=== PATIENT | female | born 1935 | race Caucasian/White ===

== ENCOUNTER 2017-04-21 09:31 | Emergency (ER) | payer MEDICARE ==
[~2017-04-21] VITALS: Ht 157.5 cm; Wt 65.0 kg
[2017-04-21 09:32] VITALS: BP 138/78; PULSE 97; RESP 20; TEMP 98.8; O2SAT 94
[2017-04-21 09:41] VITALS: O2SAT 94
[2017-04-21] MEDS ORDERED: SODIUM CHLORIDE 0.9% FLUSH 10 ML FLUSH IVF PRN (09:45)
[2017-04-21] MEDS: RESP: ALBUTEROL 2.5 MG/IPRATROPIUM 0.5 MG NEB (SCH) INH (09:49)
[2017-04-21] MEDS ORDERED: LOSA25TA PO (09:58)
[2017-04-21] MEDS ORDERED: ALBUAER3 INH (09:58)
[2017-04-21] MEDS ORDERED: NIFE10CA PO (09:58)
[2017-04-21] MEDS ORDERED: MOXI400T4 PO (09:58)
[2017-04-21] MEDS ORDERED: PRAV40TA2 PO (09:58)
[2017-04-21] MEDS ORDERED: GLYB5TAB3 PO (09:58)
[2017-04-21] MEDS ORDERED: MULT1TAB PO (09:58)
[2017-04-21] MEDS ORDERED: ASPI-110 PO (09:58)
[2017-04-21] MEDS ORDERED: BENZ100 PO (09:58)
[2017-04-21 10:11] LABS: AUTOMATED NEUTROPHIL # 5.9 TH/MM3 (1.8-7.7); BASOPHIL # 0.1 TH/MM3 (0-0.2); BASOPHIL % 0.7 % (0.0-2.0); EOSINOPHIL # 0.1 TH/MM3 (0-0.4); EOSINOPHIL % 1.1 % (0.0-4.0); HEMATOCRIT 39.4 % (35.0-46.0); MEAN CELL VOLUME 92.1 FL (80.0-100.0); MEAN CORPUSCULAR HEMOGLOBIN 30.2 PG (27.0-34.0); MEAN CORPUSCULAR HGB CONC 32.8 % (32.0-36.0); MONO % 5.4 % (0.0-8.0); NEUT % 79.8 % (16.0-70.0); PLATELET COUNT 292 TH/MM3 (150-450); RED BLOOD COUNT 4.28 MIL/MM3 (4.00-5.30); RED CELL DISTRIBUTION WIDTH 12.8 % (11.6-17.2); WHITE BLOOD COUNT 7.5 TH/MM3 (4.0-11.0)
[2017-04-21 10:24] LABS: POTASSIUM 4.2 MEQ/L (3.5-5.1)
[2017-04-21 10:25] LABS: HEMO FLAGS DIFF FINAL
--- NOTE | 2017-04-21 10:43 | RADHPO ---
EXAM DATE/TIME: 04/21/2017 10:22 [facility] COMPARISON: No previous studies available for comparison. INDICATIONS : Short of Breath MEDICAL HISTORY : None. SURGICAL HISTORY : None. ENCOUNTER: Initial ACUITY: 1 day PAIN SCORE: 0/10 LOCATION: Bilateral chest FINDINGS: There is cardiomegaly with mild interstitial edema. The cardiomegaly is mild as well. There is elevation of the right hemidiaphragm with multiple changes in the right base that has the ap pearance of likely fluid. There is no pneumothorax. The portion of the bony skeleton visualized is u nremarkable. CONCLUSION: Abnormal right base. Mild congestive failure probable small loculated right pleural effusion. Pratik Mcclendon MD FACR on April 21, 2017 at 10:39 Board Certified Radiologist. This report was verified electronically.
--- NOTE | 2017-04-21 11:05 | PD ---
HPI Chief Complaint: Respiratory Symptoms Time Seen by Provider: 09:38 Travel History International Travel<30 days: No Contact w/Intl Traveler<30days: No Traveled to known affect area: No History of Present Illness HPI Patient is a 81-year-old female who presents the emergency department with complaint of shortness of breath. Patient states that she has been struggling with "pneumonia" for 5 weeks now. She has had cough, chest congestion. She is from [facility] and was seen by her primary care and placed on some antibiotics, she does not recall the name, and steroids. She felt improved briefly. She has traveled to [facility] over the course of 2 days. Since being here [facility] she notes worsening symptoms with cough and chest congestion, generalized fatigue and anorexia. No documented fever. She was seen in an urgent care last week and given prescription for albuterol MDI which makes her feel somewhat jittery and moxifloxacin. She's been taking this now for 5 days. PFSH Past Medical History High Cholesterol: Yes Diabetes: Yes Patient Takes Glucophage: Yes Hypertension: Yes Influenza Vaccination: No ?: Not Past Surgical History Surgical History: No Previous Surgery Section: Yes Hysterectomy: Yes Social History Alcohol Use: Yes (DAILY 2 COCKTAILS) Tobacco Use: No Substance Use: No Allergies-Medications (Allergen,Severity, Reaction): Coded Allergies: No Known Allergies (Unverified , 04/21/17) Reported Meds & Prescriptions Reported Meds & Active Scripts Active Reported Pravastatin 40 Mg Tab 40 Mg PO DAILY Aspirin 81 (Aspirin) 81 Mg Tabdr 81 Mg PO DAILY Losartan (Losartan Potassium) 25 Mg Tab 25 Mg PO DAILY Glyburide 5 Mg Tab 5 Mg PO BID Take with meals at the same time each day Nifedipine 10 Mg Cap 30 Mg PO DAILY Centrum Silver Adult 50+ (Multiple Vitamins W/ Minerals) 1 Tab Tab 1 Tab PO DAILY Tessalon Perles (Benzonatate) 100 Mg Cap 100 Mg PO TID PRN Avelox (Moxifloxacin HCl) 400 Mg Tab 400 Mg PO DAILY Proair Hfa 8.5 GM Inh (Albuterol Sulfate) 90 Mcg/Act Aer 2 Puff INH Q4-6H PRN 108 mcg/actuation Review of Systems Except as stated in HPI: all other systems reviewed are Neg Physical Exam Narrative GENERAL: Well elderly female in no acute distress SKIN: Focused skin assessment warm/dry. HEAD: Normocephalic. EYES: No scleral icterus. No injection or drainage. ENT: Mucous membranes pink and moist. NECK: Supple CARDIOVASCULAR: Regular rate and rhythm. No murmur appreciated. RESPIRATORY: No accessory muscle use. Decreased in bilateral bases with occasional wheezing GASTROINTESTINAL: Abdomen soft, non-tender, nondistended. MUSCULOSKELETAL: No obvious deformities. No edema. NEUROLOGICAL: Awake and alert. Normal speech. PSYCHIATRIC: Appropriate mood and affect; insight and judgment normal. Data Data Last Documented VS Vital Signs Date Time Temp Pulse Resp B/P Pulse Ox O2 Delivery O2 Flow Rate FiO2 04/21/17 09:42 94 Room Air 04/21/17 09:32 98.8 97 20 138/78 Orders Complete Blood Count With Diff (04/21/17 09:38) Basic Metabolic Panel (Bmp) (04/21/17 09:38) B-Type Natriuretic Peptide (04/21/17 09:38) Iv Access Insert/Monitor (04/21/17 09:38) Electrocardiogram (04/21/17 09:38) Ecg Monitoring (04/21/17 09:38) Oximetry (04/21/17 09:38) Chest, Single Ap (04/21/17 09:38) Sodium Chloride 0.9% Flush (Ns Flush) (04/21/17 09:45) Albuterol-Ipratropium Neb (Duoneb Neb) (04/21/17 09:45) Piperacil-Tazo 4.5 Gm Premix (Zosyn 4.5 (04/21/17 11:15) Labs Laboratory Tests Test 04/21/17 10:05 White Blood Count 7.5 TH/MM3 Red Blood Count 4.28 MIL/MM3 Hemoglobin 12.9 GM/DL Hematocrit 39.4 % Mean Corpuscular Volume 92.1 FL Mean Corpuscular Hemoglobin 30.2 PG Mean Corpuscular Hemoglobin 32.8 % Concent Red Cell Distribution Width 12.8 % Platelet Count 292 TH/MM3 Mean Platelet Volume 8.0 FL Neutrophils (%) (Auto) 79.8 % Lymphocytes (%) (Auto) 13.0 % Monocytes (%) (Auto) 5.4 % Eosinophils (%) (Auto) 1.1 % Basophils (%) (Auto) 0.7 % Neutrophils # (Auto) 5.9 TH/MM3 Lymphocytes # (Auto) 1.0 TH/MM3 Monocytes # (Auto) 0.4 TH/MM3 Eosinophils # (Auto) 0.1 TH/MM3 Basophils # (Auto) 0.1 TH/MM3 CBC Comment DIFF FINAL Differential Comment Sodium Level 141 MEQ/L Potassium Level 4.2 MEQ/L Chloride Level 103 MEQ/L Carbon Dioxide Level 28.0 MEQ/L Anion Gap 10 MEQ/L Blood Urea Nitrogen 39 MG/DL Creatinine 1.40 MG/DL Estimat Glomerular Filtration 36 ML/MIN Rate Random Glucose 202 MG/DL Calcium Level 9.5 MG/DL B-Type Natriuretic Peptide 10 PG/ML MDM Medical Decision Making Medical Screen Exam Complete: Yes Emergency Medical Condition: Yes Medical Record Reviewed: Yes Differential Diagnosis 81-year-old female here with complaint of 5 weeks of cough, chest congestion worsening over the last 1-2 weeks despite taking moxifloxacin. Differential includes pneumonia failing outpatient management, bronchitis, viral syndrome, influenza, heart failure. Narrative Course Patient placed on monitor, IV established and blood obtained. Twelve-lead EKG shows sinus rhythm without notable ST or T-wave abnormalities and normal intervals. Given DuoNeb 2. CBC, BMP, BNP unremarkable. Portal chest x-ray shows changes in the right base with possible pleural effusion versus failure. Evidence of pneumonia. Discussed inpatient versus outpatient treatment with patient. Agreed to travel change in outpatient antibiotic regimen. Patient was given a dose of Zosyn here will be discharged home with Augmentin and doxycycline. Diagnosis Primary Impression: Pneumonia Qualified Code: J18.1 - Pneumonia of right lower lobe due to infectious organism Referrals: Primary Care Physician call for appointment Additional Instructions: Stop the moxifloxacin. Take the Augmentin and doxycycline as discussed. Breathing treatments as needed. Follow-up with primary care as discussed. Med/Other Pt SpecificInfo: Prescription(s) given, Med Stopped Scripts Albuterol Neb 2.5 Mg/3 Ml Neb2.5 Mg NEB Q4HR NEB #60 NEBULE Ref 0 While awake Prov:Ailyn Salas MD 04/21/17 Doxycycline Hyclate 100 Mg [id number] Mg PO BID 7 Days Ref 0 Prov:Ailyn Salas MD 04/21/17 Amoxicillin-Clavulanate (Augmentin)875-125 Mg Tab1 Tab PO BID 7 Days Ref 0 Prov:Ailyn Salas MD 04/21/17 Disposition: 01 DISCHARGE HOME Condition: Stable Ailyn Salas MD Apr 21, 2017 11:05
[2017-04-21] MEDS ORDERED: AUGM875T3 PO (11:12)
[2017-04-21] MEDS ORDERED: ALBU0.08 NEB (11:12)
[2017-04-21] MEDS ORDERED: DOXY100C PO (11:12)
[2017-04-21] MEDS ORDERED: PIPERACIL-TAZO 4.5 GM PREMIX 100 ML IV ONE (11:15)
[2017-04-21 12:11] VITALS: BP 105/65; PULSE 96; RESP 18; O2SAT 94
--- NOTE | 2017-04-21 13:42 | EKG ---
Date Performed: 04/21/2017 Time Performed: 09:48:01 PTAGE: 81 years EKG: BASELINE ARTIFACT PRESENT. Sinus rhythm NONSPECIFIC T-WAVE ABNORMALITY BORDERLINE ECG INTERPRETATION BASED ON A DEFAULT AGE OF 40 YEARS NO PREVIOUS TRACING DOCTOR: Izaiah Rod Interpretating Date/Time 04/21/2017 13:40:06
== END 2017-04-21 12:28 | disposition home or self-care (01) ==
LOC: PHED 09:31
DX: J18.9 Pneumonia, unspecified organism (principal); R94.31 Abnormal electrocardiogram [ECG] [EKG]; R05 Cough; E11.9 Type 2 diabetes mellitus without complications; I10 Essential (primary) hypertension
CPT/HCPCS: 71010; 80048; 83880; 85025; 93005; 94640; 94664; 96374; 99285; J2543

== ENCOUNTER 2017-04-22 07:19 | Inpatient (IN) | payer MEDICARE ==
[~2017-04-22] VITALS: Ht 157.5 cm; Wt 66.6 kg
[2017-04-22] VITALS (8 sets, daily range): BP systolic 101–158; BP diastolic 59–80; PULSE 86–103; RESP 16–20; TEMP 97.6–99.3; O2SAT 71–99
[~2017-04-22 07:19] MED LIST: ALBU0.08 NEB; ALBUAER3 INH; ASPI-110 PO; AUGM875T3 PO; BENZ100 PO; DOXY100C PO; GLYB5TAB3 PO; LOSA25TA PO; MOXI400T4 PO; MULT1TAB PO; NIFE10CA PO; PRAV40TA2 PO
[2017-04-22] MEDS ORDERED: SODIUM CHLOR 0.9% 1000 ML INJ 1,000 ML IV SCH (07:50)
--- NOTE | 2017-04-22 07:56 | PD ---
HPI Chief Complaint: GI Complaint Time Seen by Provider: 07:44 Travel History International Travel<30 days: No Contact w/Intl Traveler<30days: No Traveled to known affect area: No History of Present Illness HPI 81-year-old female presents with nonbloody vomiting and diarrhea since being discharged yesterday with pneumonia. She states she took one dose of her antibiotics at home since she was discharged. She states that she's thrown up to the point that she has nothing left. She states that otherwise she has no other concurrent complaints. She states she also had one breathing treatment at home. She states she has been on these and she developed bronchitis 5 weeks ago. She states she feels worse when she moves around. She denies other modifying factors. Quality is nonbloody. Severity is multiple episodes. PFSH Past Medical History Hx Anticoagulant Therapy: No Cardiovascular Problems: Yes (HTN) High Cholesterol: Yes Diabetes: Yes Patient Takes Glucophage: No Diminished Hearing: No Hypertension: Yes Tetanus Vaccination: Unknown ?: Not Past Surgical History Section: Yes Hysterectomy: Yes Social History Alcohol Use: Yes (DAILY 2 COCKTAILS) Tobacco Use: No Substance Use: No Allergies-Medications (Allergen,Severity, Reaction): Coded Allergies: No Known Allergies (Unverified , 04/22/17) Reported Meds & Prescriptions Reported Meds & Active Scripts Active Albuterol Neb (Albuterol Sulfate) 2.5 Mg/3 Ml Neb 2.5 Mg NEB Q4HR NEB While awake Doxycycline Hyclate 100 Mg Cap 100 Mg PO BID 7 Days Augmentin (Amoxicillin-Clavulanate) 875-125 Mg Tab 1 Tab PO BID 7 Days Reported Pravastatin 40 Mg Tab 40 Mg PO DAILY Aspirin 81 (Aspirin) 81 Mg Tabdr 81 Mg PO DAILY Losartan (Losartan Potassium) 25 Mg Tab 25 Mg PO DAILY Glyburide 5 Mg Tab 5 Mg PO BID Take with meals at the same time each day Nifedipine 10 Mg Cap 30 Mg PO DAILY Centrum Silver Adult 50+ (Multiple Vitamins W/ Minerals) 1 Tab Tab 1 Tab PO DAILY Tessalon Perles (Benzonatate) 100 Mg Cap 100 Mg PO TID PRN Avelox (Moxifloxacin HCl) 400 Mg Tab 400 Mg PO DAILY Proair Hfa 8.5 GM Inh (Albuterol Sulfate) 90 Mcg/Act Aer 2 Puff INH Q4-6H PRN 108 mcg/actuation Review of Systems Except as stated in HPI: all other systems reviewed are Neg Physical Exam Narrative GENERAL: Well-nourished, well-developed patient. SKIN: Warm and dry. HEAD: Normocephalic and atraumatic. EYES: No injection or drainage. ENT: No nasal drainage noted. NECK: Supple, trachea midline. CARDIOVASCULAR: Regular rate and rhythm RESPIRATORY: Expiratory wheezing bilaterally. No accessory muscle use. GASTROINTESTINAL: Abdomen soft, non-tender, nondistended. EXTREMITIES: No edema. NEUROLOGICAL: Awake and alert. Moves all extremities. Normal speech. Data Data Last Documented VS Vital Signs Date Time Temp Pulse Resp B/P Pulse Ox O2 Delivery O2 Flow Rate FiO2 04/22/17 09:05 92 16 130/61 99 Aerosol Mask 04/22/17 07:24 99.3 Orders Basic Metabolic Panel (Bmp) (04/22/17 07:50) Complete Blood Count With Diff (04/22/17 07:50) Lactic Acid Sepsis Protocol (04/22/17 07:50) Influenzae A/B Antigen (04/22/17 07:50) Urinalysis - C+S If Indicated (04/22/17 07:50) Blood Culture (04/22/17 07:50) Chest, Single Ap (04/22/17 07:50) Ecg Monitoring (04/22/17 07:50) Iv Access Insert/Monitor (04/22/17 07:50) Oximetry (04/22/17 07:50) Sodium Chlor 0.9% 1000 Ml Inj (Ns 1000 M (04/22/17 07:50) Sodium Chloride 0.9% Flush (Ns Flush) (04/22/17 08:00) Albuterol Neb (Albuterol Neb) (04/22/17 08:00) Ondansetron Inj (Zofran Inj) (04/22/17 08:00) Piperacil-Tazo 4.5 Gm Premix (Zosyn 4.5 (04/22/17 08:00) Azithromycin Inj (Zithromax Inj) (04/22/17 08:00) Admit Order (Ed Use Only) (04/22/17 09:36) Labs Laboratory Tests Test 04/22/17 08:15 White Blood Count 12.5 TH/MM3 Red Blood Count 4.47 MIL/MM3 Hemoglobin 13.6 GM/DL Hematocrit 40.9 % Mean Corpuscular Volume 91.6 FL Mean Corpuscular Hemoglobin 30.5 PG Mean Corpuscular Hemoglobin 33.3 % Concent Red Cell Distribution Width 12.3 % Platelet Count 277 TH/MM3 Mean Platelet Volume 8.2 FL Neutrophils (%) (Auto) 86.5 % Lymphocytes (%) (Auto) 4.5 % Monocytes (%) (Auto) 4.3 % Eosinophils (%) (Auto) 2.6 % Basophils (%) (Auto) 2.1 % Neutrophils # (Auto) 10.8 TH/MM3 Lymphocytes # (Auto) 0.6 TH/MM3 Monocytes # (Auto) 0.5 TH/MM3 Eosinophils # (Auto) 0.3 TH/MM3 Basophils # (Auto) 0.3 TH/MM3 CBC Comment DIFF FINAL Differential Comment Sodium Level 140 MEQ/L Potassium Level 4.3 MEQ/L Chloride Level 101 MEQ/L Carbon Dioxide Level 29.2 MEQ/L Anion Gap 10 MEQ/L Blood Urea Nitrogen 32 MG/DL Creatinine 0.96 MG/DL Estimat Glomerular Filtration 56 ML/MIN Rate Random Glucose 193 MG/DL Lactic Acid Level 1.3 mmol/L Calcium Level 9.6 MG/DL Total Bilirubin 0.6 MG/DL Direct Bilirubin 0.2 MG/DL Indirect Bilirubin 0.4 MG/DL Aspartate Amino Transf 17 U/L (AST/SGOT) Alanine Aminotransferase 23 U/L (ALT/SGPT) Alkaline Phosphatase 57 U/L B-Type Natriuretic Peptide 18 PG/ML Total Protein 7.6 GM/DL Albumin 3.5 GM/DL Lipase 166 U/L [facility] Medical Decision Making Medical Screen Exam Complete: Yes Emergency Medical Condition: Yes Medical Record Reviewed: Yes (past history confirm, here yesterday with right sided pneumonia given Zosyn and discharged on Augmentin and doxycycline) Interpretation(s) CBC & BMP Diagram 04/22/17 08:15 Last 24 hours Impressions Chest X-Ray 04/22/17 0750 Signed Impressions: Service Date/Time: Saturday, April 22, 2017 08:03 - CONCLUSION: Persistent right lung opacities characteristic of airspace disease and possible right basilar loculated fluid as previously described. Better characterization of the right lung opacities can be obtained with CT if clinically indicated. Leno Bob MD Differential Diagnosis Pneumonia, gastroenteritis, electrolyte deficiency, renal failure Narrative Course Will check blood work, chest x-ray and dose with albuterol. Yesterday given Zosyn so we'll cover with Zosyn and azithromycin for her pneumonia. She will likely need to be admitted for IV antibiotic therapy given now with emesis ED workup with persistent infiltrate and vomiting now Will place in the hospital. Patient agrees to admission, ct ordered Physician Communication Physician Communication dr meneses agrees to admit, ct pulmonary discussed and I will order Diagnosis Primary Impression: Right pulmonary infiltrate on CXR Additional Impression: Pleural effusion Admitting Information Admitting Physician Requests: Admit Meredith Mortensen MD Apr 22, 2017 07:56
[2017-04-22] MEDS ORDERED: AZITHROMYCIN INJ 500 MG in SODIUM CHLOR 0.9% 250 ML INJ 250 ML IV ONE (08:00)
[2017-04-22] MEDS ORDERED: SODIUM CHLORIDE 0.9% FLUSH 10 ML FLUSH IVF PRN (08:00)
[2017-04-22] MEDS ORDERED: PIPERACIL-TAZO 4.5 GM PREMIX 100 ML IV ONE (08:00)
[2017-04-22] MEDS ORDERED: ONDANSETRON HCL 4 MG/2 ML VIAL IV PUSH ONE (08:00)
[2017-04-22] MEDS ORDERED: RESP: ALBUTEROL 2.5 MG/3 ML NEB (SCH) INH ONE (08:00)
[2017-04-22 08:32] LABS: AUTOMATED NEUTROPHIL # 10.8 TH/MM3 (1.8-7.7); BASOPHIL # 0.3 TH/MM3 (0-0.2); BASOPHIL % 2.1 % (0.0-2.0); EOSINOPHIL # 0.3 TH/MM3 (0-0.4); EOSINOPHIL % 2.6 % (0.0-4.0); HEMATOCRIT 40.9 % (35.0-46.0); LYMPH % 4.5 % (9.0-44.0); LYMPHOCYTE # 0.6 TH/MM3 (1.0-4.8); MEAN CELL VOLUME 91.6 FL (80.0-100.0); MEAN CORPUSCULAR HEMOGLOBIN 30.5 PG (27.0-34.0); MEAN CORPUSCULAR HGB CONC 33.3 % (32.0-36.0); MONO % 4.3 % (0.0-8.0); NEUT % 86.5 % (16.0-70.0); PLATELET COUNT 277 TH/MM3 (150-450); RED BLOOD COUNT 4.47 MIL/MM3 (4.00-5.30); RED CELL DISTRIBUTION WIDTH 12.3 % (11.6-17.2); WHITE BLOOD COUNT 12.5 TH/MM3 (4.0-11.0)
[2017-04-22 08:33] LABS: HEMO FLAGS DIFF FINAL
[2017-04-22 08:38] LABS: POTASSIUM 4.3 MEQ/L (3.5-5.1)
[2017-04-22 08:41] LABS: BICARBONATE 29.2 MEQ/L (21.0-32.0)
--- NOTE | 2017-04-22 09:08 | RADHPO ---
EXAM DATE/TIME: 04/22/2017 08:03 [facility] COMPARISON: CHEST SINGLE AP, April 21, 2017, 10:22. INDICATIONS : Cough. Patient was seen here yesterday. Vomiting today & states she feels worse. MEDICAL HISTORY : Hypertension. Hypercholesterolemia. Diabetic. SURGICAL HISTORY : section. Hysterectomy. ENCOUNTER: [facility] ACUITY: 2 days PAIN SCORE: 0/10 LOCATION: chest FINDINGS: Significant opacity remains evident in the right lung. There is increased density both in the right u pper lung field and in the right base. The right heart border is obscured. Left lung is clear. Heart is normal in size. CONCLUSION: Persistent right lung opacities characteristic of airspace disease and possible right basilar loculat ed fluid as previously described. Better characterization of the right lung opacities can be obtained with CT if clinically indicated. Leno Bob MD on April 22, 2017 at 9:04 Board Certified Radiologist. This report was verified electronically.
[2017-04-22] MEDS ORDERED: LACTULOSE SYRUP 20 GM/30 ML CUP PO PRN (09:45)
[2017-04-22] MEDS ORDERED: MAGNESIUM HYDROXIDE SUSP 30 ML CUP PO PRN (09:45)
[2017-04-22] MEDS ORDERED: BISACODYL 10 MG SUPP RECTAL PRN (09:45)
[2017-04-22] MEDS ORDERED: ONDANSETRON HCL 4 MG/2 ML VIAL IVP PRN (09:45)
[2017-04-22] MEDS ORDERED: SENNOSIDES 8.6 MG TAB PO PRN (09:45)
[2017-04-22] MEDS ORDERED: NALOXONE HCL 0.4 MG/ML AMP IV PRN (09:45)
[2017-04-22] MEDS ORDERED: SODIUM CHLORIDE 0.9% FLUSH 10 ML FLUSH IV FLUSH PRN (09:45)
[2017-04-22] MEDS: HEPARIN SODIUM - SQ 10,000 UNITS/ML VIAL SQ SCH ×2 (10:00→21:47)
[2017-04-22] MEDS: SODIUM CHLOR 0.9% 1000 ML INJ 1,000 ML IV SCH ×2 (10:00→21:42)
[2017-04-22 10:03] LABS: INDIRECT BILIRUBIN 0.4 MG/DL (0.0-0.8); TOTAL BILIRUBIN ADULT 0.6 MG/DL (0.2-1.0)
[2017-04-22] MEDS ORDERED: METOCLOPRAMIDE HCL 10 MG/2 ML VIAL IV PUSH ONE (10:30)
[2017-04-22] MEDS: METFORMIN HOLD POST IV CONTRAST SCH (10:40)
[2017-04-22] MEDS ORDERED: IOHEXOL 350 MG/ML 10 ML VIAL (for RAD DIAG) IV ONE (10:43)
[2017-04-22] MEDS ORDERED: SODIUM CHLORID 0.9% 500 ML INJ 500 ML IV ONE (10:45)
--- NOTE | 2017-04-22 12:12 | RADHPO ---
EXAM DATE/TIME: 04/22/2017 10:27 [facility] COMPARISON: No previous studies available for comparison. INDICATIONS : Cough and vomiting. Evaluate for embolism. IV CONTRAST: 65 cc Omnipaque 350 (iohexol) IV RADIATION DOSE: 11.91 CTDIvol (mGy) MEDICAL HISTORY : Hypertension. Hypercholesterolemia. Diabetes. SURGICAL HISTORY : Hysterectomy. section. ENCOUNTER: Initial ACUITY: 1 day PAIN SCALE: 0/10 LOCATION: chest TECHNIQUE: Volumetric scanning of the chest was performed using a pulmonary embolism protocol MIP images were re constructed. Using automated exposure control and adjustment of the mA and/or kV according to patien t size, radiation dose was kept as low as reasonably achievable to obtain optimal diagnostic quality images. FINDINGS: The examination is of excellent diagnostic quality. The examination demonstrates a large right suprah ilar mass with extensive right hilar, mediastinal and subcarinal adenopathy. There is moderate compre ssion of the right main pulmonary artery as it traverses through the adenopathy. No pulmonary embolus is identified. There is moderate atherosclerotic plaquing of the coronary arteries. There is a moderate size pleural effusion on the right. There are atelectatic changes in the right lo wer lobe. There is partial collapse of the right middle lobe. The left lung demonstrates a smaller scarring in the posterior aspect of the left upper lobe. The visualized osseous structures are grossly intact. The limited portion of upper abdomen visualized is unremarkable. CONCLUSION: 1. No pulmonary embolus identified. 2. There is a large right suprahilar mass which extends into the mediastinum and subcarinal sen jennifer in. This encases and partially compresses the right main pulmonary artery. This is consistent with ma lignancy. This lesion would be amenable to CT-guided biopsy. 3. There is collapse of the right middle lobe with obstruction of the bronchus intermedius. 4. Small right pleural effusion. 5. Atherosclerotic plaquing of the coronary arteries. No Lopez Mcclendon MD on April 22, 2017 at 10:45 Board Certified Radiologist. This report was verified electronically.
[2017-04-22] MEDS: INSULIN ASPART SUPPLEMENTAL SCALE SQ SCH ×3 (12:35→21:00)
[2017-04-22] MEDS ORDERED: BENZONATATE 100 MG CAP PO PRN (13:30)
--- NOTE | 2017-04-22 13:38 | HHI.HP ---
[facility] Service [facility] Primary Care Physician Non-Staff Admission Diagnosis pneumonia Diagnoses: (1) Pneumonia Diagnosis: Principal (2) Hypertension (3) Hyperlipidemia (4) Diabetes mellitus Chief Complaint: Dyspnea, cough, vomiting Travel History International Travel<30 Days: No Contact w/Intl Traveler <30 Da: No Traveled to Known Affected Are: No History of Present Illness The patient is an 81-year-old female who presented to the emergency department with worsening dyspnea and cough. She initially was seen at urgent care at home in [place]. She was started on antibiotics for diagnosis of pneumonia. She had worsening symptoms and presented to the ER here yesterday. She was discharged home with a change in the oral antibiotic regimen. Last night she developed significant nausea and vomiting. She continues to have cough and dyspnea. Denies fever, chills, night sweats. Review of Systems Constitutional: DENIES: Fever, Chills, Night Sweats Eyes: DENIES: Blurred vision, Vision loss Ears, nose, mouth, throat: DENIES: Hearing loss Respiratory: COMPLAINS OF: Cough, Sputum production, Shortness of breath, DENIES: Wheezing Cardiovascular: DENIES: Chest pain, Palpitations, Dyspnea on Exertion, Lower Extremity Edema Gastrointestinal: COMPLAINS OF: Nausea, Vomiting, DENIES: Abdominal pain, Constipation, Diarrhea Genitourinary: DENIES: Urinary frequency, Urinary incontinence, Urgency, Hematuria, Dysuria, Nocturia Musculoskeletal: DENIES: Joint pain, Muscle aches Integumentary: DENIES: Pruritus, Rash Hematologic/lymphatic: DENIES: Bruising Neurologic: DENIES: Headache Past Family Social History Past Medical History Hypertension Diabetes Hyperlipidemia Past Surgical History section Hysterectomy Reported Medications Albuterol Neb (Albuterol Sulfate) 2.5 Mg/3 Ml Neb 2.5 Mg NEB Q4HR NEB While awake Doxycycline Hyclate 100 Mg Cap 100 Mg PO BID 7 Days Augmentin (Amoxicillin-Clavulanate) 875-125 Mg Tab 1 Tab PO BID 7 Days Pravastatin 40 Mg Tab 40 Mg PO DAILY Aspirin 81 (Aspirin) 81 Mg Tabdr 81 Mg PO DAILY Losartan (Losartan Potassium) 25 Mg Tab 25 Mg PO DAILY Glyburide 5 Mg Tab 5 Mg PO BID Take with meals at the same time each day Nifedipine 10 Mg Cap 30 Mg PO DAILY Centrum Silver Adult 50+ (Multiple Vitamins W/ Minerals) 1 Tab Tab 1 Tab PO DAILY Tessalon Perles (Benzonatate) 100 Mg Cap 100 Mg PO TID PRN Proair Hfa 8.5 GM Inh (Albuterol Sulfate) 90 Mcg/Act Aer 2 Puff INH Q4-6H PRN 108 mcg/actuation Allergies: Coded Allergies: No Known Allergies (Unverified , 04/22/17) Family History Denies Social History Quit smoking 15 years ago. Drinks 2 cocktails daily. Denies illicit drug use. Physical Exam Vital Signs Vital Signs Date Time Temp Pulse Resp B/P Pulse Ox O2 Delivery O2 Flow Rate FiO2 04/22/17 12:00 98.3 96 20 118/71 71 04/22/17 10:34 86 16 101/59 97 Nasal Cannula 2 04/22/17 09:05 92 16 130/61 99 Aerosol Mask 04/22/17 08:05 16 92 Room Air 04/22/17 07:24 99.3 103 16 109/76 92 Physical Exam GENERAL: Elderly female in no acute distress. HEENT: Normocephalic, atraumatic. Pupils equal, round and reactive. Extraocular movements intact. No scleral icterus. No injection or drainage. Oropharynx is clear. Mucous membranes are moist. CARDIOVASCULAR: Regular rate and rhythm without murmurs, gallops, or rubs. RESPIRATORY: Scattered wheeze. Decreased breath sounds in the right lower lung laguerre. Breathing is non-labored. GASTROINTESTINAL: Abdomen soft, non-tender, nondistended. EXTREMITIES: No lower extremity edema. No calf tenderness. PSYCH: Alert and oriented x 3. Laboratory Laboratory Tests Test 04/22/17 08:15 White Blood Count 12.5 Red Blood Count 4.47 Hemoglobin 13.6 Hematocrit 40.9 Mean Corpuscular Volume 91.6 Mean Corpuscular Hemoglobin 30.5 Mean Corpuscular Hemoglobin 33.3 Concent Red Cell Distribution Width 12.3 Platelet Count 277 Mean Platelet Volume 8.2 Neutrophils (%) (Auto) 86.5 Lymphocytes (%) (Auto) 4.5 Monocytes (%) (Auto) 4.3 Eosinophils (%) (Auto) 2.6 Basophils (%) (Auto) 2.1 Neutrophils # (Auto) 10.8 Lymphocytes # (Auto) 0.6 Monocytes # (Auto) 0.5 Eosinophils # (Auto) 0.3 Basophils # (Auto) 0.3 CBC Comment DIFF FINAL Differential Comment Sodium Level 140 Potassium Level 4.3 Chloride Level 101 Carbon Dioxide Level 29.2 Anion Gap 10 Blood Urea Nitrogen 32 Creatinine 0.96 Estimat Glomerular Filtration 56 Rate Random Glucose 193 Lactic Acid Level 1.3 Calcium Level 9.6 Total Bilirubin 0.6 Direct Bilirubin 0.2 Indirect Bilirubin 0.4 Aspartate Amino Transf 17 (AST/SGOT) Alanine Aminotransferase 23 (ALT/SGPT) Alkaline Phosphatase 57 B-Type Natriuretic Peptide 18 Total Protein 7.6 Albumin 3.5 Lipase 166 Date/Time Procedure Status Source Growth 04/22/17 08:35 Influenza Types A,B Antigen (JOSE J) - Final Complete Nasal Washing NEGATIVE FOR FLU A AND B ANTIGEN.... 04/22/17 08:25 Aerobic Blood Culture Received Blood Peripheral Pending 04/22/17 08:25 Anaerobic Blood Culture Received Blood Peripheral Pending Result Diagram: 04/22/17 0815 04/22/17 0815 Imaging Last Impressions Chest X-Ray 04/22/17 0750 Signed Impressions: Service Date/Time: Saturday, April 22, 2017 08:03 - CONCLUSION: Persistent right lung opacities characteristic of airspace disease and possible right basilar loculated fluid as previously described. Better characterization of the right lung opacities can be obtained with CT if clinically indicated. Leno Bob MD CT Angiography 04/22/17 0000 Signed Impressions: Service Date/Time: Saturday, April 22, 2017 10:27 - CONCLUSION: 1. No pulmonary embolus identified. 2. There is a large right suprahilar mass which extends into the mediastinum and subcarinal sen chain. This encases and partially compresses the right main pulmonary artery. This is consistent with malignancy. This lesion would be amenable to CT-guided biopsy. 3. There is collapse of the right middle lobe with obstruction of the bronchus intermedius. 4. Small right pleural effusion. 5. Atherosclerotic plaquing of the coronary arteries. No Lopez Mcclendon MD Assessment and Plan Assessment and Plan 1. Pneumonia, failed outpatient therapy: Possible postobstructive pneumonia secondary to lung mass. Continue current antibiotics. 2. Lung mass: Patient is a former smoker. Concerning for malignancy. Consult pulmonology. Will need biopsy. 3. Hypertension: Blood pressure is well controlled. Continue losartan, nifedipine. 4. Hyperlipidemia: Continue statin. 5. Diabetes mellitus: Monitor Accu-Cheks and cover with sliding scale insulin. Continue glyburide. 6. DVT prophylaxis: VALENTE Pringle, subcutaneous heparin. Keegan Zarate MD Apr 22, 2017 13:38
[2017-04-22] MEDS ORDERED: Gentamicin Consult Pharmacy 1 EA OTHER SCH (13:45)
[2017-04-22] MEDS ORDERED: PIPERACIL-TAZO 3.375 GM PREMIX 50 ML IV SCH (14:00)
[2017-04-22] MEDS: RESP: ALBUTEROL 2.5 MG/3 ML NEB (PRN) NEB (15:26)
[2017-04-22] MEDS: AZTREONAM INJ 1,000 MG in SODIUM CHLORIDE 0.9% INJ 100 ML IV SCH ×2 (16:12→21:42)
[2017-04-22] MEDS: LEVOFLOXACIN 750 MG PREMIX INJ 150 ML IV SCH (16:13)
[2017-04-22 16:17] LABS: BLOOD, URINE NEG (NEG); GLUCOSE,URINE NEG (NEG); KETONE, URINE NEG (NEG); NITRITE,URINE NEG (NEG); PH, URINE 5.5 (5.0-8.5)
[2017-04-22 16:21] LABS: METHOD OF COLLECTION CLEAN CATCH
[2017-04-22 16:22] LABS: COMMENT (UR) CULT NOT INDICATED; CULTURE IF INDICATED CULT NOT INDICATED; URINE COLOR YELLOW (YELLW/STRAW); WBC, URINE 0-2 /hpf (0-5)
[2017-04-22] MEDS ORDERED: SODIUM CHLORIDE 0.9% IV SCH (17:00)
[2017-04-22] MEDS ORDERED: GENTAMICIN IV SCH (17:00)
[2017-04-22] MEDS: DOCUSATE SODIUM 50 MG/SENNA 8.6 MG TAB PO SCH (21:41)
[2017-04-22] MEDS: glyBURIDE 5 MG TAB PO SCH (21:41)
[2017-04-22] MEDS: SODIUM CHLORIDE 0.9% FLUSH 10 ML FLUSH IV FLUSH SCH (21:43)
[2017-04-23] VITALS (8 sets, daily range): BP systolic 136–189; BP diastolic 82–99; PULSE 84–105; RESP 18–20; TEMP 96.3–98.4; O2SAT 91–96
[2017-04-23] MEDS: AZTREONAM INJ 1,000 MG in SODIUM CHLORIDE 0.9% INJ 100 ML IV SCH ×3 (05:12→21:38)
[2017-04-23] MEDS: SODIUM CHLOR 0.9% 1000 ML INJ 1,000 ML IV SCH ×2 (05:12→15:47)
[2017-04-23] MEDS: INSULIN ASPART SUPPLEMENTAL SCALE SQ SCH ×4 (06:30→20:33)
[2017-04-23] MEDS ORDERED: GLUCAGON 1 MG/ML VIAL OTHER PRN (07:15)
[2017-04-23] MEDS ORDERED: DEXTROSE 50% IN WATER 50 ML VIAL(D50) IV PUSH PRN (07:15)
[2017-04-23 07:39] LABS: AUTOMATED NEUTROPHIL # 5.3 TH/MM3 (1.8-7.7); BASOPHIL % 0.6 % (0.0-2.0); EOSINOPHIL # 0.3 TH/MM3 (0-0.4); HEMATOCRIT 36.9 % (35.0-46.0); HEMO FLAGS DIFF FINAL; LYMPH % 14.3 % (9.0-44.0); MEAN CORPUSCULAR HEMOGLOBIN 30.8 PG (27.0-34.0); MEAN CORPUSCULAR HGB CONC 33.4 % (32.0-36.0); MONO % 9.4 % (0.0-8.0); NEUT % 71.7 % (16.0-70.0); PLATELET COUNT 242 TH/MM3 (150-450); RED BLOOD COUNT 4.01 MIL/MM3 (4.00-5.30); RED CELL DISTRIBUTION WIDTH 12.5 % (11.6-17.2); WHITE BLOOD COUNT 7.3 TH/MM3 (4.0-11.0)
[2017-04-23] MEDS ORDERED: AZITHROMYCIN 250 MG TAB PO SCH (09:00)
[2017-04-23] MEDS: NIFEdipine 10 MG CAP PO SCH (09:55)
[2017-04-23] MEDS: glyBURIDE 5 MG TAB PO SCH ×2 (09:56→20:32)
[2017-04-23] MEDS: LOSARTAN 25 MG TAB PO SCH (09:56)
[2017-04-23] MEDS: ASPIRIN EC 81 MG TABEC PO SCH (09:56)
[2017-04-23] MEDS: MULTIVITAMINS/MINERALS THERAPEUTIC TAB PO SCH (09:56)
[2017-04-23] MEDS: PRAVASTATIN SOD 40 MG TAB PO SCH (09:56)
[2017-04-23] MEDS: DOCUSATE SODIUM 50 MG/SENNA 8.6 MG TAB PO SCH ×2 (09:56→20:33)
[2017-04-23] MEDS: HEPARIN SODIUM - SQ 10,000 UNITS/ML VIAL SQ SCH ×2 (09:56→21:40)
[2017-04-23] MEDS: SODIUM CHLORIDE 0.9% FLUSH 10 ML FLUSH IV FLUSH SCH ×2 (09:57→20:33)
[2017-04-23] MEDS: METFORMIN HOLD POST IV CONTRAST SCH (10:40)
[2017-04-23] MEDS: LEVOFLOXACIN 750 MG PREMIX INJ 150 ML IV SCH (15:37)
--- NOTE | 2017-04-23 15:44 | HHI.PR ---
Subjective Remarks Follow-up pneumonia, lung mass. Patient still with occasional dyspnea and cough that is nonproductive. She reports having dry heaves today. No fever or chills. No chest pain. Objective Vitals Vital Signs Date Time Temp Pulse Resp B/P Pulse Ox O2 Delivery O2 Flow Rate FiO2 04/23/17 12:00 97.9 89 20 143/ 95 04/23/17 08:24 92 Nasal Cannula 2.00 04/23/17 08:00 105 04/23/17 08:00 96.3 87 20 149/84 94 04/23/17 04:00 98.0 85 20 136/82 96 04/23/17 00:00 97.3 84 20 151/83 96 04/22/17 20:00 94 04/22/17 20:00 95 Nasal Cannula 3.00 04/22/17 20:00 97.6 90 20 135/74 98 04/22/17 16:00 98.3 95 20 158/80 98 I/O 04/22/17 04/22/17 04/22/17 04/23/17 04/23/17 04/23/17 06:59 14:59 22:59 06:59 14:59 22:59 Intake Total 760 ml 760 ml 60 ml 420 ml Output Total 3 ml Balance 760 ml 760 ml 60 ml 417 ml Intake Oral 460 ml 460 ml 60 ml 420 ml IV Total 300 ml 300 ml Output Urine Total 2 ml Stool Total 1 ml # Voids 2 2 2 3 # Bowel Movements 0 1 Result Diagram: 04/23/17 0715 04/22/17 0815 Imaging Last Impressions Chest X-Ray 04/22/17 0750 Signed Impressions: Service Date/Time: Saturday, April 22, 2017 08:03 - CONCLUSION: Persistent right lung opacities characteristic of airspace disease and possible right basilar loculated fluid as previously described. Better characterization of the right lung opacities can be obtained with CT if clinically indicated. Leno Bob MD CT Angiography 04/22/17 0000 Signed Impressions: Service Date/Time: Saturday, April 22, 2017 10:27 - CONCLUSION: 1. No pulmonary embolus identified. 2. There is a large right suprahilar mass which extends into the mediastinum and subcarinal sen chain. This encases and partially compresses the right main pulmonary artery. This is consistent with malignancy. This lesion would be amenable to CT-guided biopsy. 3. There is collapse of the right middle lobe with obstruction of the bronchus intermedius. 4. Small right pleural effusion. 5. Atherosclerotic plaquing of the coronary arteries. No Lopez Mcclendon MD Objective Remarks General: No acute distress. Heart: Regular rate and rhythm. No murmur. Lungs: Decreased breath sounds on the right. Scattered wheeze. Breathing is nonlabored. Abdomen: Soft, nontender, nondistended. Extremities: No lower extremity edema. Psych: Alert and oriented. Urinary Catheter: No Vascular Central Line Catheter: No A/P Problem List: (1) Pneumonia ICD Code: J18.9 Status: Acute (2) Hypertension ICD Code: I10 Status: Chronic (3) Hyperlipidemia ICD Code: E78.5 Status: Chronic (4) Diabetes mellitus ICD Code: E11.9 Status: Chronic (5) Lung mass ICD Code: R91.8 Status: Acute Assessment and Plan 1. Pneumonia, failed outpatient therapy: Possible postobstructive pneumonia secondary to lung mass. Continue current antibiotics. 2. Lung mass: Patient is a former smoker. Concerning for malignancy. Will need biopsy, CT-guided versus bronchoscopic. Awaiting pulmonology consultation. 3. Hypertension: Blood pressure is well controlled. Continue losartan, nifedipine. 4. Hyperlipidemia: Continue statin. 5. Diabetes mellitus: Monitor Accu-Cheks and cover with sliding scale insulin. Continue glyburide. 6. DVT prophylaxis: SCDs, VALENTE guadalupe, subcutaneous heparin. Keegan Zarate MD Apr 23, 2017 15:43
[2017-04-23] MEDS ORDERED: GENTAMICIN INJ 320 MG in SODIUM CHLORIDE 0.9% INJ 100 ML IV ONE (16:00)
[2017-04-23 20:10] LABS: BLOOD GAS BASE EXCESS 0.7 mmol/L (-2-2); BLOOD GAS CARBOXYHEMOGLOBIN 1.7 % (0-4); BLOOD GAS HCO3 25 mmol/L (22-26); BLOOD GAS METHEMOGLOBIN 1.2 % (0-2); BLOOD GAS O2 HGB SATURATION 90 % (90-100); BLOOD GAS OXYGEN CONTENT 16.3 Vol % (12.0-20.0); BLOOD GAS PCO2 45 mmHG (38-42); BLOOD GAS PO2 65 mmHG (61-120); TEMP CORR TO 98.6
[2017-04-23 20:11] LABS: CRITICAL VALUE NO; DRAW SITE RT RADIAL; FIO2 21 %; NUMBER OF ARTERIAL PUNCTURES 1; STAT NO; ULNAR PULSE Y
[2017-04-23] MEDS: TEMAZEPAM 7.5 MG CAP PO PRN (21:38)
[2017-04-24] VITALS (8 sets, daily range): BP systolic 117–181; BP diastolic 65–112; PULSE 76–102; RESP 16–20; TEMP 96.5–98.7; O2SAT 64–97
[2017-04-24] MEDS: SODIUM CHLOR 0.9% 1000 ML INJ 1,000 ML IV SCH ×3 (01:28→21:26)
[2017-04-24] MEDS ORDERED: PHARMACY ORDERED LAB ONE (03:00)
[2017-04-24] MEDS: AZTREONAM INJ 1,000 MG in SODIUM CHLORIDE 0.9% INJ 100 ML IV SCH (05:51)
[2017-04-24] MEDS: INSULIN ASPART SUPPLEMENTAL SCALE SQ SCH ×4 (06:22→21:00)
--- NOTE | 2017-04-24 07:55 | MB ---
cc: DONNY HINES M.D. DATE OF CONSULTATION 04/23/2017 REASON FOR CONSULTATION 1. Right lung mass malignancy highly suspect 2. Post obstructive pneumonia 3. Hypertension 4. Hyperlipidemia 5. Diabetes mellitus HISTORY OF PRESENT ILLNESS Mrs. Anguiano is an 81-year-old female who presents to the emergency room with cough, shortness of breath. The patient was seen for pneumonia [facility] in [place] prior to coming to [place], was given antibiotic therapy, however, failed to improve. The patient's failure to improve despite antibiotic therapy, she did have a CT scan of the chest with evidence of right suprahilar mass with extension to the mediastinum and subcarinal lymph node enlargement. The right main pulmonary arteries is encased by tumor. The right middle lobe is obstructed as well. The bronchus intermedius is obstructive as well. The patient was hospitalized for same. PAST MEDICAL HISTORY 1. Diabetes mellitus 2. Hypertension 3. Hyperlipidemia 4. Previous 5. Previous hysterectomy MEDICATIONS AT HOME 1. Neb Albuterol 2. Doxycycline 3. Augmentin 4. Pravastatin 5. Aspirin 6. Losartan 7. Glyburide 8. Nifedipine 9. Centrum 10. Tessalon 11. ProAir ALLERGIES None known to medication FAMILY HISTORY Noncontributory SOCIAL HISTORY Used to smoke, however has not smoked for over 10 years. Drinks alcohol socially. Does not use drugs. PRESENT ANTIBIOTICS Include aztreonam and levofloxacin. PHYSICAL EXAM On exam, the patient is alert. VITAL SIGNS: Her temperature is 98, pulse 80, respirations 16, blood pressure 140/80, O2 sat 94% on two liters oxygen nasal cannula. HEENT: Exam unremarkable. Eyes without icterus. NECK: Without adenopathy, thyroid enlargement. Central trachea. CHEST: Without dullness to percussion. A few rhonchi at the right base on auscultation. CARDIAC: PMI distant. S1-S2 audible. No murmur or rub. ABDOMEN: Lax, audible bowel sounds. EXTREMITIES: No clubbing, cyanosis or edema. LABORATORY DATA White count 7.3, hemoglobin 12, hematocrit 36, platelets 242,000. Sodium is 140, potassium 4.3, BUN 32, creatinine 0.9. IMPRESSION 1. Right lung mass suggestive of underlying malignancy with post-obstructive pneumonia 2. Diabetes mellitus 3. Hypertension 4. Hyperlipidemia PLAN The patient is to continue antibiotic therapy. The patient will require bronchoscopy and biopsy, however, she does not want to do any workup while here in the [place] area and wishes to continue to initiate and conclude the evaluation in [place], [place] which is her home town. I have discussed the findings with the patient in detail and what is involved. I will attempt to optimize her condition as best as possible prior to her departure to [place]. She is going to drive by car. She does not utilize air travel, she gets quite panicky. I do thank you for asking me to partake in Mrs. Crow's care. Her outlook is poor given her underlying advanced disease. Donny Hines MD WWW/GAL /6:46 PM /7:37 AM
[2017-04-24] MEDS: NIFEdipine 10 MG CAP PO SCH (08:43)
[2017-04-24] MEDS: PRAVASTATIN SOD 40 MG TAB PO SCH (08:43)
[2017-04-24] MEDS: glyBURIDE 5 MG TAB PO SCH ×2 (08:43→21:23)
[2017-04-24] MEDS: MULTIVITAMINS/MINERALS THERAPEUTIC TAB PO SCH (08:43)
[2017-04-24] MEDS: LOSARTAN 25 MG TAB PO SCH (08:43)
[2017-04-24] MEDS: ASPIRIN EC 81 MG TABEC PO SCH (08:43)
[2017-04-24] MEDS: HEPARIN SODIUM - SQ 10,000 UNITS/ML VIAL SQ SCH ×2 (08:44→21:25)
[2017-04-24] MEDS: SODIUM CHLORIDE 0.9% FLUSH 10 ML FLUSH IV FLUSH SCH ×2 (08:45→21:00)
[2017-04-24] MEDS: DOCUSATE SODIUM 50 MG/SENNA 8.6 MG TAB PO SCH ×2 (09:00→21:00)
--- NOTE | 2017-04-24 11:03 | HHI.PR ---
Subjective Remarks Follow-up lung mass, pneumonia. Patient states that her breathing is a little better today. She states that she is anxious and obviously concerned about her diagnosis. She is hoping to be able to return home to [place], [place] soon. She does not want to have biopsy done here. Objective Vitals Vital Signs Date Time Temp Pulse Resp B/P Pulse Ox O2 Delivery O2 Flow Rate FiO2 04/24/17 09:56 2.00 04/24/17 08:00 96.9 79 20 152/86 94 04/24/17 04:00 97.8 84 16 140/79 95 04/24/17 00:00 97.6 82 18 142/83 96 04/23/17 20:00 91 04/23/17 20:00 96.6 93 18 189/99 91 04/23/17 19:25 94 Nasal Cannula 2.00 04/23/17 15:57 98.4 88 20 144/83 94 04/23/17 12:00 97.9 89 20 143/ 95 I/O 04/23/17 04/23/17 04/23/17 04/24/17 04/24/17 04/24/17 07:00 15:00 23:00 07:00 15:00 23:00 Intake Total 60 ml 420 ml 240 ml 1000 ml Output Total 3 ml Balance 60 ml 417 ml 240 ml 1000 ml Intake Oral 60 ml 420 ml 240 ml IV Total 1000 ml Output Urine Total 2 ml Stool Total 1 ml # Voids 2 3 4 # Bowel Movements 0 1 Result Diagram: 04/23/17 0715 04/24/17 0450 Imaging Last Impressions Chest X-Ray 04/22/17 0750 Signed Impressions: Service Date/Time: Saturday, April 22, 2017 08:03 - CONCLUSION: Persistent right lung opacities characteristic of airspace disease and possible right basilar loculated fluid as previously described. Better characterization of the right lung opacities can be obtained with CT if clinically indicated. Leno Bob MD CT Angiography 04/22/17 0000 Signed Impressions: Service Date/Time: Saturday, April 22, 2017 10:27 - CONCLUSION: 1. No pulmonary embolus identified. 2. There is a large right suprahilar mass which extends into the mediastinum and subcarinal sen chain. This encases and partially compresses the right main pulmonary artery. This is consistent with malignancy. This lesion would be amenable to CT-guided biopsy. 3. There is collapse of the right middle lobe with obstruction of the bronchus intermedius. 4. Small right pleural effusion. 5. Atherosclerotic plaquing of the coronary arteries. No Lopez Mcclendon MD Objective Remarks General: No acute distress. Sitting up in a chair. Heart: Regular rate and rhythm. No murmur. Lungs: Decreased breath sounds on the right. Scattered wheeze. Breathing is nonlabored. Abdomen: Soft, nontender, nondistended. Extremities: No lower extremity edema. Psych: Alert and oriented. Procedures None Urinary Catheter: No Vascular Central Line Catheter: No A/P Problem List: (1) Pneumonia ICD Code: J18.9 Status: Acute (2) Hypertension ICD Code: I10 Status: Chronic (3) Hyperlipidemia ICD Code: E78.5 Status: Chronic (4) Diabetes mellitus ICD Code: E11.9 Status: Chronic (5) Lung mass ICD Code: R91.8 Status: Acute Assessment and Plan 1. Pneumonia, failed outpatient therapy: Appears to be postobstructive pneumonia secondary to lung mass. Transition to oral antibiotics. Patient initially presented to the emergency department because she was unable to tolerate oral antibiotics prescribed in the ER. 2. Lung mass: Patient is a former smoker. Concerning for malignancy. Will need biopsy, CT-guided versus bronchoscopic. Appreciate pulmonology recommendations. Patient has opted to not have biopsy done at this time. She would like to return home to [facility]. 3. Hypertension: Blood pressure is well controlled. Continue losartan, nifedipine. 4. Hyperlipidemia: Continue statin. 5. Diabetes mellitus: Monitor Accu-Cheks and cover with sliding scale insulin. Continue glyburide. 6. DVT prophylaxis: SCDs, VALENTE hose, subcutaneous heparin. Discharge Planning Possible discharge home next 1-2 days if arrangements can be made for home oxygen and pending clinical improvement. Keegan Zarate MD Apr 24, 2017 11:03
[2017-04-24] MEDS: LEVOFLOXACIN 750 MG TAB PO SCH (12:39)
[2017-04-24] MEDS ORDERED: OXYGENTANK NAS.CANULA (14:20)
--- NOTE | 2017-04-24 18:18 | HHI.PR ---
Subjective Remarks ASS: ALERT ON o2 no SOB at rest Objective GENERAL: SKIN: Warm and dry. HEAD: Atraumatic. Normocephalic. EYES: Pupils equal and round. No scleral icterus. No injection or drainage. ENT: No nasal bleeding or discharge. Mucous membranes pink and moist. NECK: Trachea midline. No JVD. CARDIOVASCULAR: Regular rate and rhythm. RESPIRATORY: No accessory muscle use. Clear to auscultation. Breath sounds equal bilaterally. GASTROINTESTINAL: Abdomen soft, non-tender, nondistended. Hepatic and splenic margins not palpable. MUSCULOSKELETAL: Extremities without clubbing, cyanosis, or edema. No obvious deformities. NEUROLOGICAL: Awake and alert. No obvious cranial nerve deficits. Motor grossly within normal limits. Five out of 5 muscle strength in the arms and legs. Normal speech. PSYCHIATRIC: Appropriate mood and affect; insight and judgment normal. Vital Signs Date Time Temp Pulse Resp B/P Pulse Ox O2 Delivery O2 Flow Rate FiO2 04/24/17 16:00 97.9 88 18 161/88 94 04/24/17 12:00 96.5 102 18 158/106 92 04/24/17 10:00 96 Nasal Cannula 2.00 04/24/17 09:56 2.00 04/24/17 08:00 96.9 79 20 152/86 94 04/24/17 08:00 91 04/24/17 04:00 97.8 84 16 140/79 95 04/24/17 00:00 97.6 82 18 142/83 96 04/23/17 20:00 91 04/23/17 20:00 96.6 93 18 189/99 91 04/23/17 19:25 94 Nasal Cannula 2.00 I/O 04/23/17 04/23/17 04/23/17 04/24/17 04/24/17 04/24/17 07:00 15:00 23:00 07:00 15:00 23:00 Intake Total 60 ml 420 ml 240 ml 1000 ml 650 ml Output Total 3 ml Balance 60 ml 417 ml 240 ml 1000 ml 650 ml Intake Oral 60 ml 420 ml 240 ml 650 ml IV Total 1000 ml Output Urine Total 2 ml Stool Total 1 ml # Voids 2 3 4 4 # Bowel Movements 0 1 0 Result Diagram: 04/23/17 0715 04/24/17 0450 Medications and IVs GENERAL: SKIN: Warm and dry. HEAD: Atraumatic. Normocephalic. EYES: Pupils equal and round. No scleral icterus. No injection or drainage. ENT: No nasal bleeding or discharge. Mucous membranes pink and moist. NECK: Trachea midline. No JVD. CARDIOVASCULAR: Regular rate and rhythm. RESPIRATORY: No accessory muscle use. Clear to auscultation. Breath sounds equal bilaterally. GASTROINTESTINAL: Abdomen soft, non-tender, nondistended. Hepatic and splenic margins not palpable. MUSCULOSKELETAL: Extremities without clubbing, cyanosis, or edema. No obvious deformities. NEUROLOGICAL: Awake and alert. No obvious cranial nerve deficits. Motor grossly within normal limits. Five out of 5 muscle strength in the arms and legs. Normal speech. PSYCHIATRIC: Appropriate mood and affect; insight and judgment normal. Assessment and Plan Assessment and Plan lung mass probable ca post obstructive PNA PLAN o2 as needed antibiotics home soon Donny Hines MD Apr 24, 2017 18:18
[2017-04-24] MEDS: RESP: ALBUTEROL 2.5 MG/3 ML NEB (PRN) NEB (19:48)
[2017-04-24] MEDS: TEMAZEPAM 7.5 MG CAP PO PRN (21:23)
[2017-04-25] VITALS: BP 117/65; PULSE 76; RESP 18; TEMP 98.7; O2SAT 93
[2017-04-25] MEDS ORDERED: GENTAMICIN INJ 320 MG in SODIUM CHLORIDE 0.9% INJ 100 ML IV SCH (04:00)
[2017-04-25] MEDS: INSULIN ASPART SUPPLEMENTAL SCALE SQ SCH ×3 (05:51→16:00)
[2017-04-25 08:00] VITALS: BP_SYST 162; BP_SYST 201; BP_DIAS 109; BP_DIAS 112; PULSE 88; RESP 18; TEMP 97.6; O2SAT 97
[2017-04-25 09:08] VITALS: O2SAT 96
[2017-04-25] MEDS: glyBURIDE 5 MG TAB PO SCH (09:25)
[2017-04-25] MEDS: PRAVASTATIN SOD 40 MG TAB PO SCH (09:25)
[2017-04-25] MEDS: LOSARTAN 25 MG TAB PO SCH (09:25)
[2017-04-25] MEDS: LEVOFLOXACIN 750 MG TAB PO SCH (09:25)
[2017-04-25] MEDS: MULTIVITAMINS/MINERALS THERAPEUTIC TAB PO SCH (09:25)
[2017-04-25] MEDS: DOCUSATE SODIUM 50 MG/SENNA 8.6 MG TAB PO SCH (09:25)
[2017-04-25] MEDS: NIFEdipine 10 MG CAP PO SCH (09:25)
[2017-04-25] MEDS: SODIUM CHLORIDE 0.9% FLUSH 10 ML FLUSH IV FLUSH SCH (09:26)
[2017-04-25] MEDS: ASPIRIN EC 81 MG TABEC PO SCH (09:26)
[2017-04-25] MEDS: SODIUM CHLOR 0.9% 1000 ML INJ 1,000 ML IV SCH ×2 (09:26→18:00)
[2017-04-25] MEDS: HEPARIN SODIUM - SQ 10,000 UNITS/ML VIAL SQ SCH (10:00)
[2017-04-25 10:14] VITALS: BP 131/68; PULSE 87
--- NOTE | 2017-04-25 11:35 | HHI.PR ---
Subjective Remarks Follow-up lung mass, postobstructive pneumonia. Patient states that she is feeling better today. She ambulated this morning with physical therapy and had less shortness of breath. No chest pain. Objective Vitals Vital Signs Date Time Temp Pulse Resp B/P Pulse Ox O2 Delivery O2 Flow Rate FiO2 04/25/17 10:14 87 131/68 04/25/17 09:08 96 Nasal Cannula 2.00 04/25/17 08:00 97.6 88 18 201/109 97 162/112 04/25/17 00:00 98.7 76 18 117/65 93 04/24/17 20:00 98.4 86 18 181/112 64 04/24/17 19:50 97 Nasal Cannula 2.00 04/24/17 16:00 97.9 88 18 161/88 94 04/24/17 12:00 96.5 102 18 158/106 92 I/O 04/24/17 04/24/17 04/24/17 04/25/17 04/25/17 04/25/17 07:00 15:00 23:00 07:00 15:00 23:00 Intake Total 1000 ml 650 ml 1228 ml 1525 ml Balance 1000 ml 650 ml 1228 ml 1525 ml Intake Oral 650 ml 240 ml 720 ml IV Total 1000 ml 988 ml 805 ml # Voids 4 4 2 4 # Bowel Movements 0 2 1 Result Diagram: 04/23/17 0715 04/24/17 0450 Imaging Last Impressions Chest X-Ray 04/22/17 0750 Signed Impressions: Service Date/Time: Saturday, April 22, 2017 08:03 - CONCLUSION: Persistent right lung opacities characteristic of airspace disease and possible right basilar loculated fluid as previously described. Better characterization of the right lung opacities can be obtained with CT if clinically indicated. Leno Bob MD CT Angiography 04/22/17 0000 Signed Impressions: Service Date/Time: Saturday, April 22, 2017 10:27 - CONCLUSION: 1. No pulmonary embolus identified. 2. There is a large right suprahilar mass which extends into the mediastinum and subcarinal sen chain. This encases and partially compresses the right main pulmonary artery. This is consistent with malignancy. This lesion would be amenable to CT-guided biopsy. 3. There is collapse of the right middle lobe with obstruction of the bronchus intermedius. 4. Small right pleural effusion. 5. Atherosclerotic plaquing of the coronary arteries. No Lopez Mcclendon MD Objective Remarks General: No acute distress. Sitting up in a chair. Heart: Regular rate and rhythm. No murmur. Lungs: Decreased breath sounds on the right. Scattered wheeze. Breathing is nonlabored. Abdomen: Soft, nontender, nondistended. Extremities: No lower extremity edema. Psych: Alert and oriented. Procedures None Urinary Catheter: No Vascular Central Line Catheter: No A/P Problem List: (1) Pneumonia ICD Code: J18.9 Status: Acute (2) Hypertension ICD Code: I10 Status: Chronic (3) Hyperlipidemia ICD Code: E78.5 Status: Chronic (4) Diabetes mellitus ICD Code: E11.9 Status: Chronic (5) Lung mass ICD Code: R91.8 Status: Acute Assessment and Plan 1. Pneumonia, failed outpatient therapy: Appears to be postobstructive pneumonia secondary to lung mass. Continue oral antibiotics. Continue supplemental oxygen. 2. Lung mass: Patient is a former smoker. Concerning for malignancy. Will need biopsy, CT-guided versus bronchoscopic. Appreciate pulmonology recommendations. Patient has opted to not have biopsy done at this time. She would like to return home to [facility]. 3. Hypertension: Blood pressure is well controlled. Continue losartan, nifedipine. 4. Hyperlipidemia: Continue statin. 5. Diabetes mellitus: Monitor Accu-Cheks and cover with sliding scale insulin. Continue glyburide. 6. DVT prophylaxis: SCDs, VALENTE hose, subcutaneous heparin. Discharge Planning Possible discharge home next 1-2 days if arrangements can be made for home oxygen and pending clinical improvement. Case management assisting with discharge planning. Patient may be flying back to [place] on Friday. Keegan Zarate MD Apr 25, 2017 11:35
[2017-04-25 12:00] VITALS: BP 121/75; PULSE 84; RESP 19; TEMP 97.6; O2SAT 96
[2017-04-25 16:00] VITALS: BP 181/109; PULSE 97; RESP 19; TEMP 98.3; O2SAT 95
[2017-04-25] MEDS ORDERED: PHARMACY ORDERED LAB ONE ×2 (16:45→17:30)
[2017-04-25] MEDS ORDERED: LEVA750T9 PO (17:32)
[2017-04-25] MEDS ORDERED: LORA-373 PO (17:32)
--- NOTE | 2017-04-25 17:33 | HHI.DCPOC ---
Discharge Care Plan Diagnosis: (1) Right pulmonary infiltrate on CXR (2) Diabetes mellitus (3) Hyperlipidemia (4) Hypertension (5) Pleural effusion (6) Lung mass (7) Pneumonia Goals to Promote Your Health * To prevent worsening of your condition and complications * To maintain your health at the optimal level Directions to Meet Your Goals Take your medications as prescribed Follow your dietary instruction Follow activity as directed Keep your appointments as scheduled Take your immunizations and boosters as scheduled If your symptoms worsen call your PCP, if no PCP go to Urgent Care Center or Emergency Room Smoking is Dangerous to Your Health. Avoid second hand smoke Call the 24-hour hour crisis hotline for domestic abuse at Keegan Zarate MD Apr 25, 2017 17:33
== END 2017-04-25 19:40 | disposition home or self-care (01) | DRG 195 ==
LOC: PHED 07:19 → PHEDA 09:36 → PH3A 11:14
PROVIDERS: ADMIT Family Medicine; ATTEND Family Medicine
DX: J18.9 Pneumonia, unspecified organism (principal); E11.9 Type 2 diabetes mellitus without complications; I10 Essential (primary) hypertension; Z79.84 Long term (current) use of oral hypoglycemic drugs; R91.8 Other nonspecific abnormal finding of lung field; Z87.891 Personal history of nicotine dependence; E78.5 Hyperlipidemia, unspecified; Z79.82 Long term (current) use of aspirin; R94.31 Abnormal electrocardiogram [ECG] [EKG]
CPT/HCPCS: 36600; 71010; 71275; 76937; 80048; 80076; 80170; 81001; 82565; 82805; 82948; 83605; 83690; 83880; 85025; 87040; 87804; 93005; 94620; 94640; 94664; 96365; 96367; 96374; 96375; J0456; J1580; J1644; J1815; J1956; J2405; J2543; J2765; J7030; J7040; J7050; J7613; Q9967